=== PATIENT | male | born 1990 | race African-American/Black ===

== ENCOUNTER 2017-07-07 00:38 | Emergency (ER) | payer MEDICAID ==
[~2017-07-07] VITALS: Ht 182.9 cm; Wt 59.0 kg
[2017-07-07 00:52] VITALS: BP 130/70
[2017-07-07] MEDS ORDERED: Norco 5mg/325mg tab ORAL ONE (01:15)
[2017-07-07] MEDS ORDERED: ACYCLOVIR400 MG ORAL (02:09)
[2017-07-07] MEDS ORDERED: HYDROCODON-ACE1 EA15 ORAL (02:09)
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
[2017-07-07 02:20] VITALS: BP 121/66
[2017-07-07 02:21] VITALS: BP 130/70
--- NOTE | 2017-07-07 10:46 | Diagnostic Imaging Report ---
Indication: Trauma Technique: XRAY Fingers 2-3v R Comparison: None Findings: There is a somewhat impacted, mildly comminuted and moderately displaced and angulated fracture through the proximal shaft of the second proximal phalanx. There is no associated dislocation. There is overlying soft tissue swelling. No radiopaque foreign body identified. Impression: Acute fracture through the proximal shaft of the second proximal phalanx as above. This corresponds to the preliminary interpretation by the treating ER physician, as documented in the electronic medical record.
== END 2017-07-07 02:21 | disposition home or self-care (01) ==
LOC: EMR 01:51
DX: S62.610A Displaced fracture of proximal phalanx of right index finger, initial encounter for closed fracture (principal); A60.01 Herpesviral infection of penis; X50.1XXA Overexertion from prolonged static or awkward postures, initial encounter; Y93.9 Activity, unspecified; Y92.9 Unspecified place or not applicable; E11.9 Type 2 diabetes mellitus without complications; I10 Essential (primary) hypertension
CPT/HCPCS: 26725; 73140; 99284; Z7502